=== PATIENT | female | born 1990 | race Two or more races ===

== ENCOUNTER 2017-04-16 10:00 | Observation (INO) | payer BC ==
[~2017-04-16] VITALS: Ht 165.1 cm; Wt 65.8 kg
[2017-04-16] MEDS ORDERED: PREN-96 PO (11:27)
[2017-04-16] MEDS ORDERED: METF-370 PO (11:27)
[2017-04-16] MEDS ORDERED: TERBUTALINE SULFATE 1 MG/ML 1ML VIAL SC ONE ×2 (11:30)
== END 2017-04-16 12:11 | disposition home or self-care (01) | DRG 781 ==
LOC: LDRP 10:00
PROVIDERS: ADMIT Obstetrics & Gynecology; ATTEND Obstetrics & Gynecology
DX: O24.419 Gestational diabetes mellitus in pregnancy, unspecified control (principal); O60.03 Preterm labor without delivery, third trimester; O62.9 Abnormality of forces of labor, unspecified; Z3A.32 32 weeks gestation of pregnancy
CPT/HCPCS: 59025; 76818; 81002; G0378; J3105

== ENCOUNTER 2017-04-19 10:03 | Observation (INO) | payer BC ==
[~2017-04-19] VITALS: Ht 30.5 cm; Wt 0.5 kg
[~2017-04-19 10:03] MED LIST: METF-370 PO; PREN-96 PO
[2017-04-19] MEDS ORDERED: NIFEdipine 10 MG CAP PO ONE (11:45)
[2017-04-19] MEDS ORDERED: NIFEdipine 10 MG CAP ONE (11:49)
[2017-04-19] MEDS ORDERED: TERBUTALINE SULFATE 1 MG/ML 1ML VIAL SC ONE (11:49)
[2017-04-19] MEDS: TERBUTALINE SULFATE 1 MG/ML 1ML VIAL SC SCH ×2 (11:54→13:18)
[2017-04-19] MEDS ORDERED: BETAMETHASONE ACET (6MG/ML) 5ML VIAL IM ONE (12:30)
[2017-04-20] MEDS ORDERED: NIF10C GT (13:44)
== END 2017-04-19 14:15 | disposition home or self-care (01) | DRG 781 ==
LOC: LDRP 10:03
PROVIDERS: ADMIT Obstetrics & Gynecology; ATTEND Obstetrics & Gynecology
DX: O24.419 Gestational diabetes mellitus in pregnancy, unspecified control (principal); O60.03 Preterm labor without delivery, third trimester; Z3A.33 33 weeks gestation of pregnancy
CPT/HCPCS: 59025; 76818; 81002; 82948; 82962; 96372; G0378; J0702; J3105

== ENCOUNTER 2017-04-20 12:50 | Observation (INO) | payer BC ==
[2017-04-20] MEDS ORDERED: NIF10C GT (13:44)
== END 2017-04-20 13:35 | disposition home or self-care (01) | DRG 781 ==
LOC: LDRP 12:50
PROVIDERS: ADMIT Obstetrics & Gynecology; ATTEND Obstetrics & Gynecology
DX: O24.419 Gestational diabetes mellitus in pregnancy, unspecified control (principal); O60.03 Preterm labor without delivery, third trimester; O26.893 Other specified pregnancy related conditions, third trimester; H53.8 Other visual disturbances; Z3A.33 33 weeks gestation of pregnancy
CPT/HCPCS: 59025; 81002; 82962; G0378; 96372

== ENCOUNTER 2017-04-23 09:42 | Observation (INO) | payer BC ==
[~2017-04-23 09:42] MED LIST changes: +NIF10C GT
[2017-04-23] MEDS ORDERED: NIFEdipine 10 MG CAP PO ONE (11:00)
== END 2017-04-23 11:15 | disposition home or self-care (01) | DRG 781 ==
LOC: LDRP 09:42
PROVIDERS: ADMIT Obstetrics & Gynecology; ATTEND Obstetrics & Gynecology
DX: O24.415 Gestational diabetes mellitus in pregnancy, controlled by oral hypoglycemic drugs (principal); O60.03 Preterm labor without delivery, third trimester; Z3A.33 33 weeks gestation of pregnancy
CPT/HCPCS: 59025; 76818; 81002; 82962; G0378

== ENCOUNTER 2017-04-26 09:57 | Observation (INO) | payer BC | END 2017-04-26 11:35 | disposition home or self-care (01) | DRG 778 | LOC: LDRP 09:57 | PROVIDERS: ADMIT Obstetrics & Gynecology; ATTEND Obstetrics & Gynecology | DX: O60.03 Preterm labor without delivery, third trimester (principal); O24.419 Gestational diabetes mellitus in pregnancy, unspecified control; Z3A.34 34 weeks gestation of pregnancy | CPT/HCPCS: 59025; 76818; 81002; 82962; G0378 ==

== ENCOUNTER 2017-04-30 10:07 | Observation (INO) | payer BC | END 2017-04-30 11:30 | disposition home or self-care (01) | DRG 781 | LOC: LDRP 10:07 | PROVIDERS: ADMIT Obstetrics & Gynecology; ATTEND Obstetrics & Gynecology | DX: O24.419 Gestational diabetes mellitus in pregnancy, unspecified control (principal); O60.03 Preterm labor without delivery, third trimester; Z3A.34 34 weeks gestation of pregnancy; O62.9 Abnormality of forces of labor, unspecified | CPT/HCPCS: 59025; 76818; 81002; 82948; G0378 ==

== ENCOUNTER 2017-05-03 11:05 | Observation (INO) | payer BC | END 2017-05-03 13:20 | disposition home or self-care (01) | DRG 781 | LOC: LDRP 11:05 | PROVIDERS: ADMIT Obstetrics & Gynecology; ATTEND Obstetrics & Gynecology | DX: O24.419 Gestational diabetes mellitus in pregnancy, unspecified control (principal); O62.9 Abnormality of forces of labor, unspecified; Z3A.35 35 weeks gestation of pregnancy | CPT/HCPCS: 59025; 76818; 81002; G0378 ==

== ENCOUNTER 2017-05-07 11:08 | Observation (INO) | payer BC | END 2017-05-07 12:10 | disposition home or self-care (01) | DRG 781 | LOC: LDRP 11:08 | PROVIDERS: ADMIT Specialist; ATTEND Specialist | DX: O40.3XX0 Polyhydramnios, third trimester, not applicable or unspecified (principal); O24.419 Gestational diabetes mellitus in pregnancy, unspecified control; Z3A.35 35 weeks gestation of pregnancy | CPT/HCPCS: 59025; 76818; 81002; 82948; G0378 ==

== ENCOUNTER 2017-05-10 11:05 | Observation (INO) | payer BC | END 2017-05-10 12:30 | disposition home or self-care (01) | DRG 781 | LOC: LDRP 11:05 | PROVIDERS: ADMIT Specialist; ATTEND Specialist | DX: O24.419 Gestational diabetes mellitus in pregnancy, unspecified control (principal); O62.9 Abnormality of forces of labor, unspecified; Z3A.36 36 weeks gestation of pregnancy | CPT/HCPCS: 59025; 76818; 81002; G0378; 82962 ==

== ENCOUNTER 2017-05-14 10:00 | Observation (INO) | payer BC | END 2017-05-14 11:40 | disposition home or self-care (01) | DRG 781 | LOC: LDRP 10:00 | PROVIDERS: ADMIT Specialist; ATTEND Specialist | DX: O24.419 Gestational diabetes mellitus in pregnancy, unspecified control (principal); Z3A.36 36 weeks gestation of pregnancy | CPT/HCPCS: 59025; 76818; 81002; 82962; G0378 ==

== ENCOUNTER 2017-05-21 11:00 | Observation (INO) | payer BC | END 2017-05-21 12:05 | disposition home or self-care (01) | DRG 781 | LOC: LDRP 11:00 | PROVIDERS: ADMIT Obstetrics & Gynecology; ATTEND Obstetrics & Gynecology | DX: O24.419 Gestational diabetes mellitus in pregnancy, unspecified control (principal); O62.9 Abnormality of forces of labor, unspecified; Z3A.37 37 weeks gestation of pregnancy | CPT/HCPCS: 59025; 76818; 81002; 82948; 82962; G0378 ==

== ENCOUNTER 2017-05-24 10:18 | Observation (INO) | payer BC | END 2017-05-24 12:05 | disposition home or self-care (01) | DRG 781 | LOC: LDRP 10:18 | PROVIDERS: ADMIT Obstetrics & Gynecology; ATTEND Obstetrics & Gynecology | DX: O24.419 Gestational diabetes mellitus in pregnancy, unspecified control (principal); O62.9 Abnormality of forces of labor, unspecified; Z3A.38 38 weeks gestation of pregnancy | CPT/HCPCS: 59025; 76818; 81002; 82962; G0378 ==

== ENCOUNTER 2017-05-27 11:00 | Observation (INO) | payer BC | END 2017-05-27 12:30 | disposition home or self-care (01) | DRG 781 | LOC: LDRP 11:00 | PROVIDERS: ADMIT Obstetrics & Gynecology; ATTEND Obstetrics & Gynecology | DX: O24.419 Gestational diabetes mellitus in pregnancy, unspecified control (principal); Z3A.38 38 weeks gestation of pregnancy | CPT/HCPCS: 59025; 76818; 81002; 82948; 82962; G0378 ==

== ENCOUNTER 2017-05-29 10:05 | Observation (INO) | payer BC | END 2017-05-29 11:50 | disposition home or self-care (01) | DRG 781 | LOC: LDRP 10:05 | PROVIDERS: ADMIT Obstetrics & Gynecology; ATTEND Obstetrics & Gynecology | DX: O24.419 Gestational diabetes mellitus in pregnancy, unspecified control (principal); Z3A.37 37 weeks gestation of pregnancy | CPT/HCPCS: 59025; 76818; 81002; 82962; G0378 ==

== ENCOUNTER 2017-05-30 22:30 | Inpatient (IN) | payer BC ==
[~2017-05-30] VITALS: Ht 165.1 cm; Wt 76.7 kg
[2017-05-30] MEDS: LACTATED RINGER'S 1,000 ML IV SCH (22:30)
[2017-05-30] MEDS ORDERED: LACT. RINGERS/OXYTOCIN 20UNITS 1,000 ML IV SCH (22:50)
[2017-05-30] MEDS ORDERED: PHISODERM TOP SOLN 240ML BTL TOP PRN (23:00)
[2017-05-30] MEDS ORDERED: METHYLERGONOVINE MALEATE 0.2 MG/ML AMP IM PRN (23:00)
[2017-05-30] MEDS ORDERED: ACCU-CHEK COMFORT CURVE STRIP VI ONE (23:00)
[2017-05-30] MEDS ORDERED: WITCH HAZEL-GLYCERIN PAD TOP PRN (23:00)
[2017-05-30] MEDS ORDERED: DERMOPLAST 60ML BOTTLE TOP PRN (23:00)
[2017-05-30] MEDS ORDERED: LIDOCAINE 2% (LOCAL ANESTH.) PF 5ml SDV ID ONE (23:00)
[2017-05-30 23:51] LABS: Basophils # (auto) 0 uL; Basophils % (auto) 0.4 % (0.0-2.0); Eosinophils # (auto) 0 uL; Eosinophils % (auto) 0.3 % (0.0-7.0); Hematocrit 39.8 % (36.0-46.0); Lymphocytes # (auto) 1.8 uL; Lymphocytes % (auto) 18.8 % (10.0-50.0); Mean Corpuscular Hgb Conc. 32.7 g/dL (32.0-36.0); Mean Corpuscular Volume 88.8 fL (80.0-100.0); Monocytes # (auto) 0.7 uL; Monocytes % (auto) 7.7 % (0.0-12.0); Neutrophils # (auto) 6.8 uL; Neutrophils % (auto) 72.8 % (37.0-80.0); Nucleated Red Blood Cells % 0.1 %; Platelet Count (auto) 218 10^3/uL (140-450); Red Blood Cells 4.48 10^6/uL (4.0-5.20); Red Cell Distribution Width 14.9 % (11.8-14.3); White Blood Cell 9.4 10^3/uL (4.4-10.8)
[2017-05-31 00:05] LABS: INR 0.86 (0.9-1.15); Partial Thromboplastin Time 32.5 sec (22.64-33.71); Prothrombin Time 9.4 sec (9.37-12.3)
[2017-05-31 00:09] LABS: Albumin 2.5 g/dL (3.4-5.0); Bilirubin, Total 0.3 mg/dL (0.2-1.0); Calcium 8.3 mg/dL (8.5-10.1); Potassium 3.6 mmol/L (3.5-5.1); Total Protein 6.4 g/dL (6.4-8.2); Uric Acid 3.3 mg/dL (2.6-6.0)
[2017-05-31 00:53] LABS: Urine Bacteria FEW /hpf (None Seen); Urine Blood Negative /uL (Negative); Urine Mucus FEW (None Seen); Urine WBC 7 /hpf (0 - 5)
[2017-05-31 01:01] LABS: Alcohol, Urine < 3.0 mg/dL (0-5); Amphetamine Screen, Urine NEGATIVE (NEGATIVE); Barbiturate Scree,Urine NEGATIVE (NEGATIVE); Benzodiazephine Screen, Urine NEGATIVE (NEGATIVE); Cannabinoid Screen, Urine NEGATIVE (NEGATIVE); Cocaine Screen, Urine NEGATIVE (NEGATIVE); Opiate Scree,Urine NEGATIVE (NEGATIVE); Phencyclidine Screen, Urine NEGATIVE (NEGATIVE)
[2017-05-31] MEDS: LACTATED RINGER'S 1,000 ML IV SCH (03:41)
[2017-05-31] MEDS ORDERED: D5W/LACTATED RINGERS 1,000 ML IV SCH (10:30)
[2017-05-31] MEDS ORDERED: LACT. RINGERS/OXYTOCIN 20UNITS 1,000 ML IV SCH ×2 (11:59→23:05)
[2017-05-31] MEDS ORDERED: TERBUTALINE SULFATE 1 MG/ML 1ML VIAL SC ONE (12:00)
[2017-05-31] MEDS ORDERED: fentaNYL W ROPIVACAINE 150 ML EPI SCH ×2 (15:30→16:15)
[2017-05-31] MEDS ORDERED: fentaNYL CITRATE 100 MCG/2 ML VL IV ONE (15:30)
[2017-05-31] MEDS ORDERED: ePHEDrine SULFATE 50 MG/ML AMP IV ONE ×2 (15:30→16:15)
[2017-05-31] MEDS ORDERED: LIDOCAINE HCL 2 %PF INJ 10ML AMP IJ ONE (15:30)
[2017-05-31] MEDS ORDERED: SODIUM CHLORIDE 0.9% 500 ML IV PRN (16:07)
[2017-05-31] MEDS ORDERED: NALOXONE HCL 0.4 MG/ML VIAL IV ONE (16:15)
[2017-05-31] MEDS ORDERED: MORPHINE SULF(PF) 0.5MG/ML 10ML VIAL ONE (22:09)
[2017-05-31] MEDS ORDERED: fentaNYL CITRATE 100 MCG/2 ML VL ONE (22:09)
[2017-05-31] MEDS ORDERED: NALOXONE HCL 0.4 MG/ML VIAL IV PRN (23:15)
[2017-05-31] MEDS ORDERED: MORPHINE SULF INJ 2 MG/ML SYRINGE 1ML IV PRN (23:15)
[2017-05-31] MEDS ORDERED: diphenhdrAMINE HCL 50 MG/1 ML VL IV PRN (23:15)
[2017-05-31] MEDS ORDERED: ONDANSETRON HCL 4 MG/2 ML VIAL IV PRN ×2 (23:15)
[2017-05-31] MEDS ORDERED: KETOROLAC TROMETH 30 MG/ML 1ML VIAL IV PRN (23:15)
[2017-06-01] VITALS (12 sets, daily range): BP systolic 106–121; BP diastolic 53–77
[2017-06-01] MEDS ORDERED: LACTATED RINGER'S 1,000 ML IV SCH ×3 (03:00→09:30)
[2017-06-01] MEDS ORDERED: LACTATED RINGER'S 1,000 ML IV ONE (05:15)
[2017-06-01 06:44] LABS: Basophils # (auto) 0 uL; Basophils % (auto) 0.2 % (0.0-2.0); Eosinophils # (auto) 0 uL; Hematocrit 36.6 % (36.0-46.0); Hemoglobin 12.1 g/dL (12.2-16.2); Lymphocytes # (auto) 1.5 uL; Lymphocytes % (auto) 8.6 % (10.0-50.0); Mean Corpuscular Hemoglobin 29.5 pg (28.0-32.0); Mean Corpuscular Volume 89.6 fL (80.0-100.0); Monocytes # (auto) 1.3 uL; Monocytes % (auto) 7.6 % (0.0-12.0); Neutrophils # (auto) 14.8 uL; Neutrophils % (auto) 83.6 % (37.0-80.0); Nucleated Red Blood Cells % 0.1 %; Platelet Count (auto) 201 10^3/uL (140-450); Red Blood Cells 4.09 10^6/uL (4.0-5.20); Red Cell Distribution Width 15.2 % (11.8-14.3); White Blood Cell 17.7 10^3/uL (4.4-10.8)
[2017-06-01] MEDS: ceFAZolin 1GM/50ML 50 ML IV SCH ×2 (06:55→14:35)
[2017-06-01] MEDS ORDERED: SIMETHICONE 80 MG CHEWABLE TABLET PO PRN (09:30)
[2017-06-01] MEDS: DOCUSATE SOD 100 MG CAP PO SCH ×2 (10:40→21:49)
[2017-06-01] MEDS: HYDROcodone-ACET 5/325MG TAB PO PRN ×3 (11:30→21:49)
[2017-06-01] MEDS: IBUPROFEN 800 MG TAB PO PRN (20:11)
[2017-06-01] MEDS ORDERED: MEASLES, MUMPS & RUBELLA VAC(MMRII) 0.5ML SC ONE (22:15)
[2017-06-01] MEDS ORDERED: TETANUS-DIPTH-ACEL PERTUSSIS 0.5ML SYRG IM ONE (22:15)
[2017-06-02 03:19] VITALS: BP 111/72
[2017-06-02] MEDS: IBUPROFEN 800 MG TAB PO PRN ×2 (04:24→13:30)
[2017-06-02 06:50] VITALS: BP 101/58
[2017-06-02] MEDS: DOCUSATE SOD 100 MG CAP PO SCH ×2 (09:30→22:12)
[2017-06-02] MEDS: HYDROcodone-ACET 5/325MG TAB PO PRN ×3 (10:00→22:51)
[2017-06-02 11:20] VITALS: BP 111/68
[2017-06-02] MEDS: LACTATED RINGER'S 1,000 ML IV SCH (15:20)
[2017-06-02 15:30] VITALS: BP 102/58
[2017-06-02] MEDS ORDERED: PIPERACILLIN-TAZOB 3.375GM 100 ML IV SCH (15:30)
[2017-06-02] MEDS ORDERED: INFLUENZA QUAD 2017-2018 0.5 ML SYRG IM ONE (18:45)
[2017-06-02 19:00] VITALS: BP 107/54
[2017-06-02] MEDS: IBUPROFEN 800 MG TAB PO SCH (22:12)
[2017-06-02] MEDS: PIPERACILLIN-TAZOB 3.375GM 100 ML IV SCH (22:12)
[2017-06-02 23:00] VITALS: BP 101/56
[2017-06-03 02:37] VITALS: BP 98/59
[2017-06-03] MEDS: LACTATED RINGER'S 1,000 ML IV SCH ×4 (02:37→23:20)
[2017-06-03] MEDS: PIPERACILLIN-TAZOB 3.375GM 100 ML IV SCH ×4 (03:50→22:30)
[2017-06-03] MEDS: HYDROcodone-ACET 5/325MG TAB PO PRN ×3 (03:56→14:39)
[2017-06-03] MEDS: IBUPROFEN 800 MG TAB PO SCH ×4 (05:46→22:30)
[2017-06-03 06:50] VITALS: BP 94/52
[2017-06-03] MEDS: DOCUSATE SOD 100 MG CAP PO SCH ×2 (10:27→22:30)
[2017-06-03 10:52] VITALS: BP 110/67
[2017-06-03 15:00] VITALS: BP 110/74
[2017-06-03 19:00] VITALS: BP 93/50
[2017-06-03 23:30] VITALS: BP 112/64
[2017-06-04] MEDS: HYDROcodone-ACET 5/325MG TAB PO PRN ×2 (01:33→08:12)
[2017-06-04 03:23] VITALS: BP 110/61
[2017-06-04] MEDS: PIPERACILLIN-TAZOB 3.375GM 100 ML IV SCH ×2 (04:40→10:00)
[2017-06-04] MEDS: IBUPROFEN 800 MG TAB PO SCH (05:30)
[2017-06-04 07:00] VITALS: BP 117/78
[2017-06-04] MEDS: LACTATED RINGER'S 1,000 ML IV SCH (07:20)
[2017-06-04 07:42] LABS: Basophils # (auto) 0 uL; Basophils % (auto) 0.4 % (0.0-2.0); Eosinophils # (auto) 0.3 uL; Eosinophils % (auto) 3.6 % (0.0-7.0); Hematocrit 34.5 % (36.0-46.0); Hemoglobin 11.5 g/dL (12.2-16.2); Lymphocytes # (auto) 1.3 uL; Mean Corpuscular Hemoglobin 29.9 pg (28.0-32.0); Mean Corpuscular Hgb Conc. 33.3 g/dL (32.0-36.0); Mean Corpuscular Volume 89.8 fL (80.0-100.0); Monocytes # (auto) 0.6 uL; Monocytes % (auto) 8.7 % (0.0-12.0); Neutrophils # (auto) 4.9 uL; Neutrophils % (auto) 69.3 % (37.0-80.0); Nucleated Red Blood Cells % 0.1 %; Platelet Count (auto) 308 10^3/uL (140-450); Red Blood Cells 3.85 10^6/uL (4.0-5.20); White Blood Cell 7.1 10^3/uL (4.4-10.8)
[2017-06-04] MEDS ORDERED: MEASLES, MUMPS & RUBELLA VAC(MMRII) 0.5ML SC ONE (09:55)
[2017-06-04] MEDS: DOCUSATE SOD 100 MG CAP PO SCH (10:05)
[2017-06-04 10:58] VITALS: BP 106/71
== END 2017-06-04 11:50 | disposition home or self-care (01) | DRG 766 ==
LOC: LDRP 22:30
PROVIDERS: ADMIT Specialist; ATTEND Specialist
PROC: 10D00Z1 Extraction of Products of Conception, Low, Open Approach (ICD-10-PCS; principal; 2017-05-31 22:09)
DX: O62.2 Other uterine inertia (principal); O24.419 Gestational diabetes mellitus in pregnancy, unspecified control; O24.429 Gestational diabetes mellitus in childbirth, unspecified control; Z37.0 Single live birth; Z3A.39 39 weeks gestation of pregnancy; Z23 Encounter for immunization
CPT/HCPCS: 36415; 51702; 59025; 80053; 80307; 81001; 82948; 82962; 84550; 85025; 85610; 85730; 86850; 86900; 86901; 87040; 87086; 90715; 94760; 96361; 96365; 96366; 96372; J0690; J1885; J2543; J2590; J3010